=== PATIENT | male | born 1945 | race Caucasian/White ===

== ENCOUNTER → 2024-08-31 11:47 | Outpatient (REF) | payer MEDICARE, BC, SELFPAY | LOC: HWRAD 11:47 | PROVIDERS: ATTENDING PHYSICIAN Internal Medicine Critical Care Medicine; FAMILY PHYSICIAN Internal Medicine | DX: R06.09 Other forms of dyspnea (principal); J44.9 Chronic obstructive pulmonary disease, unspecified | CPT/HCPCS: 71046 ==